=== PATIENT | male | born 1985 | race Caucasian/White ===

== ENCOUNTER 2017-12-30 10:26 | Emergency (ER) | payer SELFPAY ==
[~2017-12-30] VITALS: Ht 193 cm; Wt 77.7 kg
[~2017-12-30 10:26] MED LIST: CLINDAMYCIN HC300 MG PO; PEN-VEE K,VEET500 MG PO; PERCOCET 5/31 TABLET PO; TRAMADOL HCL50 MG PO
[2017-12-30 10:34] VITALS: BP 147/96
== END 2017-12-30 12:43 | disposition left against medical advice (07) ==
LOC: EME 10:26
DX: L03.114 Cellulitis of left upper limb (principal); F11.20 Opioid dependence, uncomplicated
CPT/HCPCS: 99281; 99284

== ENCOUNTER 2018-01-01 05:29 | Inpatient (IN) | payer OTHER ==
[~2018-01-01] VITALS: Ht 193 cm; Wt 78.9 kg
[2018-01-01 06:06] LABS: BASOPHIL (%) 0.4 % (0-1); BASOPHIL COUNT 0.1 K/uL (0-0.1); EOSINOPHIL (%) 1.6 % (0-5); EOSINOPHIL COUNT 0.2 K/uL (0-0.3); HEMATOCRIT 42.7 % (38.0-50.0); HEMOGLOBIN 14.7 G/DL (12.5-16.6); IMMATURE GRANULOCYTE (%) 0.5 % (0.0-0.7); LYMPHOCYTE (%) 10.8 % (15-42); LYMPHOCYTE COUNT 1.5 K/uL (1.0-2.8); MCH 30.6 PG (29.0-34.0); MCHC 34.4 G/DL (30.0-36.0); MONOCYTE (%) 5.1 % (3-12); MONOCYTE COUNT 0.7 K/uL (0-0.8); NEUTROPHIL (%) 81.6 % (45-76); NEUTROPHIL COUNT 11.6 K/uL (1.8-6.4); PLATELET COUNT 418 K/uL (156-360); RBC DIS.WIDTH-CV 11.9 % (11.8-14.6); WHITE BLOOD COUNT 14.2 K/uL (4.1-10.2)
[2018-01-01 06:21] LABS: CHLORIDE 102 mEq/L (99-109); POTASSIUM 3.2 mEq/L (3.7-5.4); SODIUM 138 mEq/L (136-147)
[2018-01-01 06:23] LABS: GLUCOSE 114 mg/dL (70-99)
[2018-01-01 06:27] LABS: CREATININE 0.8 mg/dL (0.6-1.3); GFR ESTIMATE (CALCULATED) > 59 mL/min/ (58.99-99999); UREA NITROGEN (BUN) 12 mg/dL (9-23)
[2018-01-01 09:41] VITALS: BP 98/56
[2018-01-01 15:29] VITALS: BP 137/72
[2018-01-01 19:21] VITALS: BP 136/78
[2018-01-01 23:45] VITALS: BP 118/68
[2018-01-02 11:21] LABS: HIV-1/2 AB/AG COMBO Nonreactive
[2018-01-03] MEDS ORDERED: ENDOCET 5-3251 EACH PO (09:30)
== END 2018-01-02 02:00 | disposition left against medical advice (07) | DRG 603 ==
LOC: EME 05:29 → 3EAST 07:10 → EDOF 07:10 → ENRESERV 07:43 → 3EAST 09:20
PROVIDERS: Emergency Medicine
DX: L03.114 Cellulitis of left upper limb (principal); F19.90 Other psychoactive substance use, unspecified, uncomplicated; F17.200 Nicotine dependence, unspecified, uncomplicated
CPT/HCPCS: 73130; 80048; 83605; 85025; 87040; 87389; 93971; 99281; 99284; 99285; J3010; J3370; J7030

== ENCOUNTER 2018-01-02 02:46 | Inpatient (IN) | payer OTHER ==
[2018-01-02] VITALS (7 sets, daily range): BP systolic 116–133; BP diastolic 57–88
[~2018-01-02] VITALS: Ht 193 cm; Wt 78.3 kg
[2018-01-02 03:21] LABS: HEMATOCRIT 38.8 % (38.0-50.0); HEMOGLOBIN 13.3 G/DL (12.5-16.6); MCH 31.1 PG (29.0-34.0); MCHC 34.3 G/DL (30.0-36.0); MCV 90.9 FL (86-99); PLATELET COUNT 394 K/uL (156-360); RED BLOOD COUNT 4.27 M/uL (4.00-5.50)
[2018-01-02 03:27] LABS: ALBUMIN 3.4 g/dL (3.2-4.8)
[2018-01-02 03:28] LABS: CHLORIDE 102 mEq/L (99-109); POTASSIUM 3.8 mEq/L (3.7-5.4); SODIUM 138 mEq/L (136-147)
[2018-01-02 03:30] LABS: GLUCOSE 96 mg/dL (70-99); TOTAL PROTEIN 7.7 g/dL (6.4-8.3)
[2018-01-02 03:32] LABS: TOTAL BILIRUBIN 0.4 mg/dL (0.0-1.0)
[2018-01-02 03:33] LABS: ALKALINE PHOSPHATASE 62 IU/L (3-129); SERUM ETHYL ALCOHOL < 10 mg/dL
[2018-01-02 03:34] LABS: CREATININE 0.7 mg/dL (0.6-1.3); GFR ESTIMATE (CALCULATED) > 59 mL/min/ (58.99-99999)
[2018-01-02 03:35] LABS: AST (GOT) 34 IU/L (2-34); UREA NITROGEN (BUN) 7 mg/dL (9-23)
[2018-01-02 03:37] LABS: ALT (GPT) 77 IU/L (3-49); LIPASE 36 U/L (1.0-51.0)
[2018-01-02 03:51] LABS: AMPHETAMINE NEGATIVE (500 ng/mL); BARBITURATES NEGATIVE (200 ng/mL); BENZODIAZEPINES NEGATIVE (150 ng/mL); BUPRENORPHINE NEGATIVE (10 ng/mL); COCAINE NEGATIVE (150 ng/mL); METHADONE NEGATIVE (200 ng/mL); METHAMPHETAMINE NEGATIVE (500 ng/mL); OPIATES (MORPHINE) PRESUMPTIVE POSITIVE (100 ng/mL); OXYCODONE PRESUMPTIVE POSITIVE (100 ng/mL); PHENCYCLIDINE NEGATIVE (25 ng/mL); PROPOXYPHENE NEGATIVE (300 ng/mL); THC CANNABINOIDS PRESUMPTIVE POSITIVE (50 ng/mL); TRICYCLIC ANTIDEPRESSANTS NEGATIVE (300 ng/mL)
[2018-01-03 03:44] VITALS: BP 129/70
[2018-01-03 03:47] VITALS: BP 122/62
[2018-01-03 08:01] VITALS: BP 122/58
[2018-01-03] MEDS ORDERED: ENDOCET 5-3251 EACH PO (09:30)
== END 2018-01-03 10:46 | disposition home or self-care (01) | DRG 513 ==
LOC: EME 02:46 → EDOF 03:10 → ENRESERV 03:21 → 3EAST 04:02
PROVIDERS: Emergency Medicine
DX: M65.142 Other infective (teno)synovitis, left hand (principal); M65.042 Abscess of tendon sheath, left hand; L03.114 Cellulitis of left upper limb; Z91.19 Patient's noncompliance with other medical treatment and regimen; Z88.5 Allergy status to narcotic agent; F11.20 Opioid dependence, uncomplicated; F17.210 Nicotine dependence, cigarettes, uncomplicated; G56.02 Carpal tunnel syndrome, left upper limb; B95.4 Other streptococcus as the cause of diseases classified elsewhere; F19.10 Other psychoactive substance abuse, uncomplicated; F12.10 Cannabis abuse, uncomplicated; F10.10 Alcohol abuse, uncomplicated; Y90.0 Blood alcohol level of less than 20 mg/100 ml; Z56.0 Unemployment, unspecified
CPT/HCPCS: 80053; 83690; 84999; 85027; 87070; 87075; 87077; 87205; 87493; 99281; 99283; G0480; J1100; J2250; J2405; J2704; J2795; J3010; J3370